=== PATIENT | female | born 2000 | race Caucasian/White ===

== ENCOUNTER 2018-09-25 22:34 | Emergency (ER) | payer BC, OTHER ==
[~2018-09-25] VITALS: Ht 157.5 cm; Wt 61.2 kg
--- OUTSIDE RECORDS SUMMARY | 2018-09-25 22:40 | XMS REPORT | Referral Summary ---
Author Author [facility] Organization [facility] Address Unknown Phone Unavailable Care Team Providers Care Furniture Manager Name Role Phone Samy Nagy PCP Encounter [facility] [id number] Date(s): 01/12/15 - 01/12/15 [facility] [address] [place] [address] Discharge Diagnosis: Irregular menses Discharge Disposition: 01-Home or Self Care Attending Physician: Temo Anaya MD Admitting Physician: Temo Anaya MD Vital Signs Most recent to 1 oldest [Reference Range]: Blood Pressure 102/64 mmHg [90-138/45-84 mmHg] (01/12/15 9:36 AM) Problem List Condition Effective Dates Status Health Status Informant Generalized anxiety Active disorder (disorder)(Confirmed ) right wrist sprain < 07/11/14 Resolved DOI 05/15/13 REC(Confirmed) Allergies, Adverse Reactions, Alerts No Known Allergies Medications Camrese oral tablet See Instructions, TAKE ONE TABLET BY MOUTH DAILY, # 91 tabs, 8 Refill(s), eRx: [facility], TAKE ONE TABLET BY MOUTH DAILY Start Date: 04/27/15 Status: Ordered Zoloft 50 mg oral tablet See Instructions, take 1 tab qd for 2 weeks then 1 1/2 tabs qd thereafter, # 90 Each, 1 Refill(s), Pharmacy: [facility], take 1 tab qd for 2 weeks then 1 1/2 tabs qd thereafter Start Date: 09/18/14 Status: Ordered Results No data available for this section Immunizations Vaccine Date Refusal Reason tetanus/diphth/pertuss (Tdap) adult/adol 03/03/10 diphtheria/pertussis, acel/tetanus ped 12/24/03 diphtheria/pertussis, acel/tetanus ped 01/05/00 diphtheria/pertussis, acel/tetanus ped 98 diphtheria/pertussis, acel/tetanus ped 98 diphtheria/pertussis, acel/tetanus ped 98 haemophilus b conjugate (HbOC) vaccine 07/14/99 haemophilus b conjugate (HbOC) vaccine 98 haemophilus b conjugate (HbOC) vaccine 98 hepatitis A pediatric vaccine 02/23/09 hepatitis A pediatric vaccine 02/22/07 hepatitis B pediatric vaccine 98 hepatitis B pediatric vaccine 98 hepatitis B pediatric vaccine 98 human papillomavirus vaccine 03/28/13 human papillomavirus vaccine 06/05/12 human papillomavirus vaccine 03/27/12 influenza virus vaccine, live 06/05/12 measles/mumps/rubella virus vaccine 12/24/03 measles/mumps/rubella virus vaccine 07/14/99 meningococcal conjugate vaccine 03/02/15 meningococcal conjugate vaccine 03/03/10 poliovirus vaccine, inactivated 12/24/03 poliovirus vaccine, inactivated 07/14/99 poliovirus vaccine, inactivated 98 poliovirus vaccine, inactivated 98 rotavirus vaccine 98 rotavirus vaccine 98 rotavirus vaccine 98 varicella virus vaccine 02/22/07 varicella virus vaccine 07/14/99 Procedures Procedure Date Related Diagnosis Body Site Tympanoplasty 2002 Ear tubes/Eardrum repair 1999 Social History Social History Type Response Smoking Status Never smoker Assessment and Plan Extracted from: Title: Gynecology Visit- Author: Temo Anaya MD Date: 01/12/15 Impression and Plan Diagnosis Irregular menses (ICD9 626.4, Discharge, Medical). Plan: Will begin seasonale. r/b/a discussed including htn, dvt, DE, stroke, etc. f/u 2months for BP check. recommend daily folic acid. .
--- OUTSIDE RECORDS SUMMARY | 2018-09-25 22:40 | XMS REPORT | Referral Summary ---
Author Author [facility] Organization [facility] Address Unknown Phone Unavailable Care Team Providers Care Solid Propellant Processor Name Role Phone Samy Nagy PCP Encounter [facility] Date(s): 03/02/15 - 03/02/15 [facility] [address], [place] [address] Discharge Diagnosis: Generalized anxiety disorder Discharge Diagnosis: Well adolescent visit Discharge Diagnosis: Unintentional weight loss Discharge Disposition: 01-Home or Self Care Attending Physician: Samy Nagy MD Admitting Physician: Samy Nagy MD Vital Signs Most recent to 1 oldest [Reference Range]: Blood Pressure 110/62 mmHg [90-138/45-84 mmHg] (03/02/15 4:12 PM) Problem List Condition Effective Dates Status Health Status Informant Generalized anxiety Active disorder (disorder)(Confirmed ) Impaired skin Active integrity(Confirmed) 1 Knowledge Active deficit(Confirmed)2 Pain(Confirmed) Active right wrist sprain < 07/11/14 Resolved DOI 05/15/13 REC(Confirmed) 1Problem added automatically by system based on initiation of Impaired Skin Integrity Plan of Care 2Problem added automatically by system based on initiation of Knowledge Deficit Plan of Care Allergies, Adverse Reactions, Alerts Substance Reaction Severity Status Nuts Active Medications Camrese oral tablet See Instructions, TAKE ONE TABLET BY MOUTH DAILY, # 91 tabs, 8 Refill(s), eRx: [facility], TAKE ONE TABLET BY MOUTH DAILY Start Date: 04/27/15 Status: Ordered clindamycin 1% topical swab 1 jack, Topical, BID, # 180 Each, 3 Refill(s), [facility] Start Date: 08/25/15 Stop Date: 08/19/16 Status: Ordered Colace 100 mg oral capsule 100 mg 1 caps, Oral, BID, 0 Refill(s) Start Date: 08/05/15 Status: Ordered MiraLax 17 g 1 packets, Oral, Daily, Constipation, 0 Refill(s) Start Date: 08/05/15 Status: Ordered [place] 5 mg-325 mg oral tablet 2 tabs, Oral, q4hr, Pain Moderate (4-6), 0 Refill(s) Start Date: 08/05/15 Status: Ordered Results Hematology Most recent to 1 oldest [Reference Range]: WBC [4.5-13.0 5.8 10*3/uL 10*3/uL] (03/02/15 4:58 PM) RBC [4.10-5.10 4.31 10*6/uL 10*6/uL] (03/02/15 4:58 PM) Hgb [11.5-15.5 12.6 gm/dL gm/dL] (03/02/15 4:58 PM) Hct [36.0-46.0 %] 38.0 % (03/02/15 4:58 PM) MCV [78.0-102.0 fL] 88.2 fL (03/02/15 4:58 PM) MCH [25.0-35.0 pg] 29.2 pg (03/02/15 4:58 PM) MCHC [31.0-37.0 33.2 gm/dL gm/dL] (03/02/15 4:58 PM) RDW [11.5-14.5 %] 12.8 % (03/02/15 4:58 PM) Platelet [150-400 263 10*3/uL 10*3/uL] (03/02/15 4:58 PM) MPV [8.8-14.8 fL] 11.6 fL (03/02/15 4:58 PM) Immature 0.2 % Granulocytes (03/02/15 4:58 PM) [0.0-1.0 %] Neutrophils [51-75 31 % %] *LOW* (03/02/15 4:58 PM) Lymphocytes [20-46 55 % %] *HI* (03/02/15 4:58 PM) Monocytes [4-11 %] 13 % *HI* (03/02/15 4:58 PM) Eosinophils [0-4 %] 2 % (03/02/15 4:58 PM) Basophils [0-2 %] 0 % (03/02/15 4:58 PM) Neutro Absolute 1.77 10*3 [1.80-8.00 10*3] *LOW* (03/02/15 4:58 PM) Lymph Absolute 3.19 10*3 [1.20-5.20 10*3] (03/02/15 4:58 PM) [place] Absolute 0.73 10*3 [0.00-0.80 10*3] (03/02/15 4:58 PM) Eos Absolute 0.09 10*3 [0.00-0.60 10*3] (03/02/15 4:58 PM) Baso Absolute 0.02 10*3 [0.00-0.20 10*3] (03/02/15 4:58 PM) Sed Rate [0-23 13 mm/hr mm/hr] (03/02/15 4:58 PM) Chemistry Most recent to 1 oldest [Reference Range]: Sodium Lvl [135-144 140 mEq/L mEq/L] (03/02/15 4:58 PM) Potassium Lvl 4.3 mEq/L [3.5-5.2 mEq/L] (03/02/15 4:58 PM) Chloride [99-111 106 mEq/L mEq/L] (03/02/15 4:58 PM) CO2 [22-31 mEq/L] 25 mEq/L (03/02/15 4:58 PM) AGAP [3-20] 9 (03/02/15 4:58 PM) BUN [8-21 mg/dL] 9 mg/dL (03/02/15 4:58 PM) Glucose Lvl [60-100 82 mg/dL mg/dL] (03/02/15 4:58 PM) Creatinine Lvl 0.77 mg/dL [0.57-1.11 mg/dL] (03/02/15 4:58 PM) Calcium Lvl 10.0 mg/dL [8.9-10.5 mg/dL] (03/02/15 4:58 PM) Albumin Lvl [3.5-5.0 4.5 gm/dL gm/dL] (6/29/15 4:58 PM) Total Protein 7.6 gm/dL [6.4-8.3 gm/dL] (03/02/15 4:58 PM) Globulin [1.8-4.0 3.1 gm/dL gm/dL] (03/02/15 4:58 PM) ALT [0-55 U/L] 9 U/L (03/02/15 4:58 PM) AST [15-45 U/L] 14 U/L *LOW* (03/02/15 4:58 PM) Alk Phos [40-150 52 U/L U/L] (03/02/15 4:58 PM) Bili Total [0.2-1.2 0.4 mg/dL mg/dL] (03/02/15 4:58 PM) TSH with Reflex Free 1.06 T4 [0.35-4.94] (03/02/15 4:58 PM) Immunizations Vaccine Date Refusal Reason tetanus/diphth/pertuss (Tdap) [...] Procedures Procedure Date Related Diagnosis Body Site Appendectomy Laparoscopic1 08/05/15 Collection of venous blood by venipuncture 03/02/15 Tympanoplasty 2003 Ear tubes/Eardrum repair 1999 1auto-populated from documented surgical case Social History Social History Type Response Smoking Status Never smoker Assessment and Plan Extracted from: Title: Well adolescent visit Author: Samy Nagy MD Date: 03/02/15 Assessment/Plan 1.Well adolescent visit Overall, I believe she is reasonably healthy. We updated her vaccines with the second meningococcal vaccine. I will see her for annual exams as well. Concerning anticipatory guidance, we talked some about relationship challenges and avoiding setting herself up for unnecessary pain. 2.Unintentional weight loss I find no exam findings to explain this weight loss but suspect it is probably related to her anxiousness. I would do some screening lab work as detailed below. If this reveals any worrisome findings, we will pursue it further. Ordered: CBC w/ Differential Comprehensive Metabolic Panel Sedimentation Rate TSH with Reflex Free T4 3.Generalized anxiety disorder She does have the chronic anxiety that at the current dosing if taken well may achieve sufficient benefit. I think we need to have simply much more consistent follow-up. I have asked her to come regularly for follow-up and would like to see her back in about 4 months.
--- OUTSIDE RECORDS SUMMARY | 2018-09-25 22:40 | XMS REPORT | Referral Summary ---
Author Author [facility] Organization [facility] Address Unknown Phone Unavailable Care Team Providers Care Search Planner Name Role Phone Samy Nagy PCP Encounter [facility] Date(s): 11/03/16 - 11/03/16 [facility] [address] [place], [place] [address] Discharge Diagnosis: Encounter for control pills maintenance Discharge Disposition: 01-Home or Self Care Attending Physician: Temo Anaya MD Admitting Physician: Temo Anaya MD Vital Signs Most recent to 1 oldest [Reference Range]: Blood Pressure 110/64 mmHg [90-140/60-90 mmHg] (11/03/16 3:13 PM) Problem List Condition Effective Dates Status Health Status Informant Exertional Active dyspnea(Confirmed) Generalized anxiety Active disorder (disorder)(Confirmed ) Impaired [...] Substance Reaction Severity Status Nuts Active Medications clindamycin 1% topical swab 1 jack, Topical, BID, # 180 Each, 3 Refill(s), [facility] Start Date: 08/25/15 Stop Date: 08/19/16 Status: Ordered Flonase 50 mcg/inh nasal spray 1 sprays, Nasal, qAM, # 16 g, 0 Refill(s), Pharmacy: [facility] Start Date: 07/25/16 Stop Date: 08/01/16 Status: Ordered Jolessa 0.15 mg-30 mcg oral tablet 1 tabs, Oral, Daily, # 91 tabs, 3 Refill(s), Pharmacy: [facility] Start Date: 11/03/16 Status: Ordered ProAir RespiClick 90 mcg/inh inhalation powder 2 puffs, Inhalation, q4hr, Wheezing or cough, # 1 Each, 0 Refill(s), Pharmacy: [facility] Start Date: 03/18/16 Status: Ordered Sprintec 0.25 mg-35 mcg oral tablet 1 tabs, Oral, Daily, # 84 tabs, 3 Refill(s), Pharmacy: [facility] Start Date: 06/13/16 Status: Ordered Results Microbiology Reports TEST: Affirm Vaginitis Panel STATUS: Auth (Verified) BODY SITE: SOURCE: Cervix/Vaginal COLLECTED DATE/TIME: 11/03/16 4:05 PM Affirm Vaginitis Panel Negative for Trichomonas vaginalis Negative for Nury species Negative for Gardnerella vaginalis Immunizations Given and Recorded Vaccine Date Status Refusal Reason tetanus/diphth/pertuss (Tdap) adult/adol 03/03/10 Recorded diphtheria/pertussis, acel/tetanus ped 12/24/03 Given diphtheria/pertussis, acel/tetanus ped 01/05/00 Given diphtheria/pertussis, acel/tetanus ped 98 Given diphtheria/pertussis, acel/tetanus ped 98 Given diphtheria/pertussis, acel/tetanus ped 98 Given haemophilus b conjugate (HbOC) vaccine 07/14/99 Given haemophilus b conjugate (HbOC) vaccine 98 Given haemophilus b conjugate (HbOC) vaccine 98 Given hepatitis A pediatric vaccine 02/23/09 Given hepatitis A pediatric vaccine 02/22/07 Given hepatitis B pediatric vaccine 98 Given hepatitis B pediatric vaccine 98 Given hepatitis B pediatric vaccine 98 Given human papillomavirus vaccine 03/28/13 Given human papillomavirus vaccine 06/05/12 Given human papillomavirus vaccine 03/27/12 Given influenza virus vaccine, live 06/05/12 Given measles/mumps/rubella virus vaccine 12/24/03 Given measles/mumps/rubella virus vaccine 07/14/99 Given meningococcal conjugate vaccine 03/02/15 Given meningococcal conjugate vaccine 03/03/10 Given meningococcal group B vaccine 04/15/16 Given meningococcal group B vaccine 03/18/16 Given poliovirus vaccine, inactivated 12/24/03 Given poliovirus vaccine, inactivated 07/14/99 Given poliovirus vaccine, inactivated 98 Given poliovirus vaccine, inactivated 98 Given rotavirus vaccine 98 Given rotavirus vaccine 98 Given rotavirus vaccine 98 Given varicella virus vaccine 02/22/07 Given varicella virus vaccine 07/14/99 Given Procedures Procedure Date Related Diagnosis Body Site Appendectomy Laparoscopic1 08/05/15 Tympanoplasty 2003 Ear tubes/Eardrum repair 1999 1auto-populated from documented surgical case Social History Social History Type Response Smoking Status Never smoker; Ready to change: No Assessment and Plan Extracted from: Title: Office Visit Note Author: Tatum Sandy APRN Date: 11/03/16 Assessment/Plan 1.Encounter for control pills maintenance Patient expresses desire to switch her Rx to Jolessa 90 day, prescribed per her request. Ordered: Office Visit Level 2 Est 52918
--- OUTSIDE RECORDS SUMMARY | 2018-09-25 22:40 | XMS REPORT | Referral Summary ---
Author Author [facility] Organization [facility] Address Unknown Phone Unavailable Care Team Providers Care Assistant Professor Of Geography Name Role Phone Samy Nagy PCP Encounter [facility] Date(s): 12/25/15 - 12/25/15 [facility] [address] [place], [place] [address] Discharge Diagnosis: History of cystitis Discharge Disposition: 01-Home or Self Care Attending Physician: Samy Nagy MD Admitting Physician: Samy Nagy MD Vital Signs Most recent to 1 oldest [Reference Range]: Blood Pressure 110/70 mmHg [90-138/45-84 mmHg] (12/25/15 11:29 AM) Problem List Condition Effective Dates Status [...] DAILY, # 91 tabs, 8 Refill(s), eRx: [facility], TAKE ONE TABLET BY MOUTH DAILY Start Date: 04/27/15 Status: Ordered clindamycin 1% topical swab 1 jack, Topical, BID, # 180 Each, 3 Refill(s), [facility] Start Date: 08/25/15 Stop Date: 08/19/16 Status: Ordered Results Urinalysis Most recent to 1 oldest [Reference Range]: UA Color Yellow (12/25/15 11:18 AM) UA Appear Clear (12/25/15 11:18 AM) UA pH [5.0-8.0] 6.5 (12/25/15 11:18 AM) UA Leuk Est Negative [Negative] (12/25/15 11:18 AM) UA Nitrite Negative [Negative] (12/25/15 11:18 AM) UA Protein Negative [Negative] (12/25/15 11:18 AM) UA Glucose Negative [Negative] (12/25/15 11:18 AM) UA Ketones Negative [Negative] (12/25/15 11:18 AM) UA Urobilinogen 0.2 mg/dL [<=1.0 mg/dL] (12/25/15 11:18 AM) UA Bili [Negative] Negative (12/25/15 11:18 AM) UA Blood [Negative] Negative (12/25/15 11:18 AM) UA Spec Grav 1.025 [1.003-1.030] (12/25/15 11:18 AM) Type Cl Catch (12/25/15 11:18 AM) UA WBC [0-4] 0-2 (12/25/15 11:18 AM) UA RBC [0-4] 0-4 (12/25/15 11:18 AM) Epithelial Cells 0-2 (12/25/15 11:18 AM) Immunizations Vaccine Date Refusal Reason tetanus/diphth/pertuss (Tdap) [...] Diagnosis Body Site Appendectomy Laparoscopic1 08/05/15 Tympanoplasty 2002 Ear tubes/Eardrum repair 1999 1auto-populated from documented surgical case Social History Social History Type Response Smoking Status Never smoker Assessment and Plan Extracted from: Title: Follow-up cystitis Author: Samy Nagy MD Date: 12/25/15 Assessment/Plan 1.History of cystitis I believe she is resolve this event ofcystitis. Her follow-up UA is clean so far. Culture is pending. Assuming that the culture is negative,they may wish to use somecranberry juice a few timesa weekto slightly reduce the riskand let us know if any new events occur. Dysuria Ordered: Urinalysis Microscopic
--- OUTSIDE RECORDS SUMMARY | 2018-09-25 22:40 | XMS REPORT | Referral Summary ---
Author Author [facility] Organization [facility] Address Unknown Phone Unavailable Care Team Providers Care Public Relations Intern Name Role Phone Samy Nagy PCP Encounter [facility] Date(s): 08/24/15 - 08/24/15 [facility] [address] [place], [place] [address] Discharge Diagnosis: Acute appendicitis Discharge Disposition: 01-Home or Self Care Attending Physician: Kashif Simon MD Admitting Physician: Kashif Simon MD Vital Signs No data available for this section Problem List Condition Effective Dates Status Health [...] DAILY, # 91 tabs, 8 Refill(s), eRx: [facility], TAKE ONE TABLET BY MOUTH DAILY Start Date: 04/27/15 Status: Ordered Colace 100 mg oral capsule 100 mg 1 caps, Oral, BID, 0 Refill(s) Start Date: 08/05/15 Status: Ordered MiraLax 17 g 1 packets, Oral, Daily, Constipation, 0 Refill(s) Start Date: 08/05/15 Status: Ordered [place] 5 mg-325 mg oral tablet 2 tabs, Oral, q4hr, Pain Moderate (4-6), 0 Refill(s) Start Date: 08/05/15 Status: Ordered Results No data available for [...] smoker Assessment and Plan Extracted from: Title: Ambulatory Patient Education Author: Kashif Simon MD Date: 08/24 Family Medicine Laparoscopic Appendectomy Appendectomy is surgery to remove the appendix. Laparoscopic surgery uses several small cuts (incisions) instead of one large incision. Laparoscopic surgery offers a shorter recovery time and less discomfort. LET YOUR CAREGIVER KNOW ABOUT: Allergies to food or medicine. Medicines taken, including vitamins, dietary supplements, herbs, eyedrops, tjky-ijm-dhcydnu medicines, and creams. Use of steroids (by mouth or creams). Previous problems with anesthetics or numbing medicines. History of bleeding problems or blood clots. Previous surgery. Other health problems, including diabetes, heart problems, lung problems, and kidney problems. Possibility of , if this applies. RISKS AND COMPLICATIONS Infection. A germ starts growing in the wound. This can usually be treated with antibiotics. In some cases, the wound will need to be opened and cleaned. Bleeding. Damage to other organs. Sores (abscesses). Chronic pain at the incision sites. This is defined as pain that lasts for more than 3 months. Blood clots in the legs that may rarely travel to the lungs. Infection in the lungs (pneumonia). BEFORE THE PROCEDURE Appendectomy is usually performed immediately after an inflamed appendix ( appendicitis) is diagnosed. No preparation is necessary ahead of this procedure. PROCEDURE You will be given medicine that makes you sleep (general anesthetic). After you are asleep, a flexible tube (catheter) may be inserted into your bladder to drain your urine during surgery. The tube is removed before you wake up after surgery. When you are asleep, carbondioxide gas will be used to inflate your abdomen. This will allow your surgeon to see inside your abdomen and perform your surgery. Three small incisions will be made in your abdomen. Your surgeon will insert a thin, lighted tube (laparoscope) through one of the incisions. Your surgeon will look through the laparoscope while performing the surgery. Other tools will be inserted through the other incisions. Laparoscopic procedures may not be appropriate when: There is major scarring from a previous surgery. The patient has bleeding disorders. A is near term. There are other conditions which make the laparoscopic procedure impossible, such as an advanced infection or a ruptured appendix. If your surgeon feels it is not safe to continue with the laparoscopic procedure , he or she will perform an open surgery instead. This gives the surgeon a larger view and more space to work. Open surgery requires a longer recovery time. After your appendix is removed, your incisions will be closed with stitches (sutures) or skin adhesive. AFTER THE PROCEDURE You will be taken to a recovery room. When the anesthesia has worn off, you will be returned to your hospital room. You will be given pain medicines to keep you comfortable. Ask your caregiver how long your hospital stay will be. Document Released: 04/04/2005 Document Revised: 11/12/2012 Document Reviewed: [employer] Patient Information 2015 [employer]. This information is not intended to replace advice given to you by your health care provider. Make sure you discuss any questions you have with your health care provider. No follow up information was provided. Extracted from: Title: Surgery Post Op Office Visit Author: Kashif Simon MD Date: 08/24 Note Assessment/Plan Acute appendicitis Luann is doing well postoperatively. She can resume all her normal activities at this point. He understands she has any problems with her incisions or any other concern she's to return here to the office. Ordered: Postoperative Est 50338
--- OUTSIDE RECORDS SUMMARY | 2018-09-25 22:40 | XMS REPORT | Referral Summary ---
Author Author [facility] Organization [facility] Address Unknown Phone Unavailable Care Team Providers Care Big Data Analytics Lead Name Role Phone Samy Nagy PCP Encounter [facility] [id number] Date(s): 04/23/15 - 04/23/15 [facility] [address] [place] [address] [facility] Discharge Diagnosis: Left otitis media Discharge Diagnosis: Left otitis externa Discharge Diagnosis: Maxillary sinusitis Discharge Disposition: 01-Home or Self Care Attending Physician: Provider, Immediate Care Admitting Physician: Provider, Immediate Care Vital Signs Most recent to 1 oldest [Reference Range]: Temperature Oral 36.8 degC [36.0-37.6 degC] (04/23/15 5:21 PM) Peripheral Pulse 60 bpm Rate [55-90 bpm] (04/23/15 5:21 PM) Blood Pressure 112/76 mmHg [90-138/45-84 mmHg] (04/23/15 5:21 PM) SpO2 99 % (04/23/15 5:21 PM) Problem List Condition Effective Dates Status [...] DAILY, # 91 tabs, 8 Refill(s), eRx: [facility], TAKE ONE TABLET BY MOUTH DAILY [...] 0 Refill(s) Start Date: 08/05/15 Status: Ordered [place] 5 mg-325 mg oral tablet 2 tabs, [...] smoker Assessment and Plan Extracted from: Title: Office Visit Note Author: Davin Sargent MD Date: 04/23/15 Assessment/Plan 1.Left otitis externa Tylenol as needed or motrin as needed. Push fluids. Diet as tolerated. Activity as tolerated. Return as needed. Tylenol or Motrin for pain. Ordered: Office Visit Level 4 Est 04850 2.Left otitis media Ordered: Office Visit Level 4 Est 87071 3.Maxillary sinusitis Zyrtec-D or Claritin-D as needed. Ordered: Office Visit Level 4 Est [id number] Orders: amoxicillin-clavulanate, 1 tabs, Oral, q12hr, X 10 days, # 20 tabs, 0 Refill(s), Pharmacy: [facility] #[id number] ciprofloxacin-dexamethasone otic, 4 drops, Ear-Left, BID, X 7 days, # 7 mL, 0 Refill(s), Pharmacy: [facility] #[id number]
--- OUTSIDE RECORDS SUMMARY | 2018-09-25 22:40 | XMS REPORT | Referral Summary ---
Author Author [facility] Organization [facility] Address Unknown Phone Unavailable Care Team Providers Care Affiliate Marketing Specialist Name Role Phone Samy Nagy PCP Encounter [facility] Date(s): 08/04/15 - 08/05/15 [facility] [address] [place] [address] Discharge Disposition: 01-Home or Self Care Attending Physician: Kashif Simon MD Admitting Physician: Kashif Simon MD Vital Signs Most recent to 1 oldest [Reference Range]: Temperature Axillary 37.0 degC [36-37 degC] (08/05/15 2:55 AM) Temperature Oral 36.9 degC [36-37.6 degC] (08/05/15 1:00 PM) Temperature Skin 37.3 degC [36-37 degC] *HI* (08/05/15 2:00 AM) Temperature Temporal 37.1 degC Artery [36-38 degC] (08/05/15 8:00 AM) Peripheral Pulse 71 bpm Rate [55-90 bpm] (08/04/15 10:51 PM) Heart Rate Monitored 63 bpm [60-100 bpm] (08/05/15 1:00 PM) Respiratory Rate 16 br/min [14-20 br/min] (08/05/15 1:00 PM) Blood Pressure 94/59 mmHg [90-138/45-84 mmHg] (08/05/15 7:27 AM) Mean Arterial 104 mmHg Pressure, Cuff (08/05/15 2:13 AM) SpO2 98 % (08/05/15 1:00 PM) Problem List Condition Effective Dates Status [...] DAILY, # 91 tabs, 8 Refill(s), eRx: [facility], TAKE ONE TABLET BY MOUTH DAILY Start Date: 04/27/15 Status: Ordered Colace 100 mg oral capsule 100 mg 1 caps, Oral, BID, 0 Refill(s) Start Date: 08/05/15 Status: Ordered MiraLax 17 g 1 packets, Oral, Daily, Constipation, 0 Refill(s) Start Date: 08/05/15 Status: Ordered [place] 5 mg-325 mg oral tablet 2 tabs, [...] Smoking Status Never smoker Assessment and Plan No data available for this section
--- OUTSIDE RECORDS SUMMARY | 2018-09-25 22:41 | XMS REPORT | Referral Summary ---
Author Author [facility] Organization [facility] Address Unknown Phone Unavailable Care Team Providers Care Paint And Table Edger Name Role Phone Samy Nagy PCP Encounter [facility] [id number] Date(s): 01/12/15 - 01/12/15 [facility] [address] [place] [id number] Discharge Diagnosis: Irregular menses Discharge Disposition: [...] DAILY, # 91 tabs, 8 Refill(s), eRx: [facility], TAKE ONE TABLET BY MOUTH DAILY Start Date: 04/27/15 Status: Ordered Zoloft 50 mg oral tablet See Instructions, take 1 tab qd for 2 weeks then 1 1/2 tabs qd thereafter, # 90 Each, 1 Refill(s), Pharmacy: [facility], take 1 tab qd for 2 [...] begin seasonale. r/b/a discussed including htn, dvt, ME, stroke, etc. f/u 2months for BP check. recommend daily folic acid. .
--- OUTSIDE RECORDS SUMMARY | 2018-09-25 22:41 | XMS REPORT | Referral Summary ---
Author Author [facility] Organization [facility] Address Unknown Phone Unavailable Care Team Providers Care Supervisor Firearms Name Role Phone Samy Nagy PCP Encounter [facility] Date(s): 04/15/16 - 04/15/16 [facility] [address], [place] [address] Discharge Disposition: 01-Home or Self Care Attending Physician: Samy Nagy MD Admitting Physician: Samy Nagy MD Vital Signs No data available for [...] Medications Camrese oral tablet See Instructions, TAKE DIRECTED BY PHYSICIAN OR PACKAGE INSTRUCTIONS, # 91 tabs, eRx: [facility], TAKE DIRECTED BY PHYSICIAN OR PACKAGE INSTRUCTIONS Start Date: 02/29/16 Status: Ordered clindamycin 1% topical swab 1 jack, Topical, BID, # 180 Each, 3 Refill(s), [facility]acy[facility] Start Date: 08/25/15 Stop Date: 08/19/16 Status: Ordered ProAir RespiClick 90 mcg/inh inhalation powder 2 puffs, Inhalation, q4hr, Wheezing or cough, # 1 Each, 0 Refill(s), Pharmacy: [facility] Start Date: 03/18/16 Status: Ordered Results No data available for [...] conjugate vaccine 03/02/15 meningococcal conjugate vaccine 03/03/10 meningococcal group B vaccine 04/15/16 meningococcal group B vaccine 03/18/16 poliovirus vaccine, inactivated 12/24/03 poliovirus vaccine, inactivated [...] Ready to change: No Assessment and Plan No data available for this section
--- OUTSIDE RECORDS SUMMARY | 2018-09-25 22:41 | XMS REPORT | Referral Summary ---
Author Author [facility] Organization [facility] Address Unknown Phone Unavailable Care Team Providers Care Day Spa Manager Name Role Phone Samy Nagy PCP Encounter [facility] Date(s): 03/30/15 - 03/30/15 [facility] [address] [place] [address] Discharge Diagnosis: Acute URI Discharge Disposition: 01-Home or Self Care Attending Physician: Mark Hernandez Admitting Physician: Mark Hernandez Referring Physician: Samy Nagy MD Vital Signs Most recent to 1 oldest [Reference Range]: Peripheral Pulse 62 bpm Rate [55-90 bpm] (03/30/15 3:01 PM) Blood Pressure 110/60 mmHg [90-138/45-84 mmHg] (03/30/15 3:01 PM) SpO2 98 % (03/30/15 3:01 PM) Problem List Condition Effective Dates Status [...] DAILY, # 91 tabs, 8 Refill(s), eRx: [facility], TAKE ONE TABLET BY MOUTH DAILY [...] 0 Refill(s) Start Date: 08/05/15 Status: Ordered Pull[place] 5 mg-325 mg oral tablet 2 tabs, [...] Extracted from: Title: Office Visit Note Author: Mark Hernandez Date: 03/30/15 Assessment/Plan 1.Acute URI Suggest using OTC Mucinex and Saline nasal spray. Also, while showering breathe in steam through nose and mouth. Take medicaitons as directed. If not getting better in next 5-7 days or if start running temp > 101 please call. Provisional Rx for Z-Joes given should she worsen over the next few days. Ordered: Office Visit Level 4 Est 23888 Orders: azithromycin, See Instructions, as directed on package labeling, # 6 tabs, 0 Refill(s)
--- OUTSIDE RECORDS SUMMARY | 2018-09-25 22:41 | XMS REPORT | Referral Summary ---
Author Author [facility] Organization [facility] Address Unknown Phone Unavailable Care Team Providers Care Director It Project Name Role Phone Samy Nagy PCP Encounter [facility] Date(s): 03/18/16 - 03/18/16 [facility] [address] [place], [place] [address] Discharge Diagnosis: Exertional dyspnea Discharge Diagnosis: Well adolescent visit Discharge Diagnosis: Generalized anxiety disorder Discharge Disposition: 01-Home or Self Care Attending Physician: Samy Nagy MD Admitting Physician: Samy Nagy MD Vital Signs Most recent to 1 oldest [Reference Range]: Blood Pressure 122/78 mmHg [90-138/45-84 mmHg] (03/18/16 12:55 PM) Problem List Condition Effective Dates Status [...] cough, # 1 Each, 0 Refill(s), Pharmacy: [facility] Start Date: 03/18/16 Status: Ordered Results [...] conjugate vaccine 03/03/10 meningococcal group B vaccine 03/18/16 poliovirus vaccine, [...] No Assessment and Plan Extracted from: Title: Well adolescent visit Author: Samy Nagy MD Date: 03/18/16 Assessment/Plan 1.Well adolescent visit Overall, I believe she is a healthy and appropriate 15-year-old. Vaccines were updated with themeningococcal type B. I would like to see her back in a year. 2.Exertional dyspnea She has this story of exertional dyspnea with the most aggressive of activity only. I think it is appropriate to start by simply doing a trial of albuterol. This was prescribed been demonstrated on how to effectively use. I would do 2 puffs prior to extensive sportsat times and then other times not use it and see how much she can tell a difference. She also of course could use it and a rescue mode. If she needs to use it with much frequency, we should probably hear back from her. 3.Generalized anxiety disorder This appears to have faded at this time which is encouraging. Orders: albuterol, 2 puffs, Inhalation, q4hr, Wheezing or cough, # 1 Each, 0 Refill(s), Pharmacy: [facility]
--- OUTSIDE RECORDS SUMMARY | 2018-09-25 22:41 | XMS REPORT | Referral Summary ---
Author Author [facility] Organization [facility] Address Unknown Phone Unavailable Care Team Providers Care Director Of Spa And Guest Experience Name Role Phone Samy Nagy PCP Encounter Date(s): 01/06/16 - 01/06/16 [facility] [address] [place] [address] [facility] Discharge Diagnosis: Right ankle sprain Discharge Diagnosis: Foot pain, right Discharge Disposition: 01-Home or Self Care Attending Physician: Provider, Immediate Care Admitting Physician: Provider, Immediate Care Vital Signs Most recent to 1 oldest [Reference Range]: Temperature Oral 36.9 degC [36.0-37.6 degC] (01/06/16 5:03 PM) Peripheral Pulse 72 bpm Rate [55-90 bpm] (01/06/16 5:03 PM) Blood Pressure 124/87 mmHg [90-138/45-84 mmHg] (01/06/16 5:03 PM) SpO2 98 % (01/06/16 5:03 PM) Problem List Condition Effective Dates Status [...] Substance Reaction Severity Status Nuts Active Medications amoxicillin 875 mg oral tablet 875 mg 1 tabs, Oral, BID, X 10 days, # 20 tabs, 0 Refill(s), Pharmacy: [facility], 1 tabs Oral BID,x10 days Start Date: 12/28/15 Stop Date: 01/07/16 Status: Ordered Camrese oral tablet See Instructions, TAKE ONE TABLET BY MOUTH DAILY, # 91 tabs, 8 Refill(s), eRx: [facility], TAKE ONE TABLET BY MOUTH DAILY Start Date: 04/27/15 Status: Ordered clindamycin 1% topical swab 1 jack, Topical, BID, # 180 Each, 3 Refill(s), [facility] Start Date: 08/25/15 Stop Date: 08/19/16 Status: Ordered Results No data available for [...] Extracted from: Title: Office Visit Note Author: Toni Domínguez MD Date: 01/06/16 Assessment/Plan Foot pain, right Ordered: Office Visit Level 3 Est 07621 Right ankle sprain RecommendedAce wrap for thefoot. Activity as tolerated. She is to follow with her PCP if not improving. Ordered: Office Visit Level 3 Est 87212
--- OUTSIDE RECORDS SUMMARY | 2018-09-25 22:41 | XMS REPORT | Referral Summary ---
Author Author [facility] Organization [facility] Address Unknown Phone Unavailable Care Team Providers Care Post Office Manager Name Role Phone Samy Nagy PCP Encounter [facility] Date(s): 07/25/16 - 07/25/16 [facility] [address], [place] [address] Discharge Diagnosis: Upper respiratory infection with cough and congestion Discharge Diagnosis: Headache Discharge Diagnosis: Sinusitis Discharge Disposition: 01-Home or Self Care Attending Physician: Jillian Velasquez MD Admitting Physician: Jillian Velasquez MD Vital Signs Most recent to 1 oldest [Reference Range]: Peripheral Pulse 76 bpm Rate [60-100 bpm] (07/25/16 1:29 PM) Blood Pressure 106/62 mmHg [90-140/60-90 mmHg] (07/25/16 1:29 PM) SpO2 98 % (07/25/16 1:29 PM) Problem List Condition Effective Dates Status [...] Substance Reaction Severity Status Nuts Active Medications azithromycin 250 mg oral tablet See Instructions, Take 2 tablets on day 1, then 1 tablet on day 2-5, once a day. Total course 5 days., # 6 tabs, 0 Refill(s), Pharmacy: [facility] , Take 2 tablets on day 1, then 1 tablet on day 2-5, once a day. Total course 5 days. Start Date: 07/25/16 Stop Date: 07/29/16 Status: Ordered clindamycin 1% topical swab 1 jack, Topical, BID, # 180 Each, 3 Refill(s), [facility] Start Date: 08/25/15 Stop Date: 08/19/16 Status: Ordered Flonase 50 mcg/inh nasal spray 1 sprays, Nasal, qAM, # 16 g, 0 Refill(s), Pharmacy: [facility] Start Date: 07/25/16 Stop Date: 08/01/16 Status: Ordered ProAir RespiClick 90 mcg/inh inhalation powder 2 puffs, Inhalation, q4hr, Wheezing or cough, # 1 Each, 0 Refill(s), Pharmacy: [facility] Start Date: 03/18/16 Status: Ordered Sprintec 0.25 mg-35 mcg oral tablet 1 tabs, Oral, Daily, # 84 tabs, 3 Refill(s), Pharmacy: [facility] Start Date: 06/13/16 Status: Ordered Results No data available for [...] Extracted from: Title: Office Visit Note Author: Jillian Velasquez MD Date: 07/25/16 Referrals to Other Providers Referred by: Jillian Velasquez MD
--- OUTSIDE RECORDS SUMMARY | 2018-09-25 22:42 | XMS REPORT | Continuity of Care Document ---
Author Author Larry Angulo RN [facility] Address [address] [place] [id number] Phone Unavailable Care Team Providers Care Charge Nurse Name Role Phone Samy Nagy PP Unavailable Payers Payer name Insurance type Covered republican ID Authorization(s) Unknown Problems Condition Effective Dates (start - stop) Clinical Status Generalized anxiety disorder - *Chronic Generalized anxiety disorder - Chronic Ankle sprain - *Acute Other acne - *Chronic Other and unspecified injury to elbow, forearm, and wrist - * Acute Closed fracture of carpal bone, unspecified - Pressure-related ear pain - *Routine Dysmenorrhea in the adolescent - *Routine Irregular periods/menstrual cycles - *Routine Influenza Vaccine - NEED FOR PROPHYLACTIC VACCINATION AND INOCULATION, OTHER VIRAL DISEASES - Generalized anxiety disorder - *Chronic Contusion of great toe, right - *Acute Routine or child health check - Routine Generalized anxiety disorder - *Worse Wrist sprain - *Routine Unspecified sinusitis (chronic) - *Acute Acute viral labyrinthitis - *Acute SPRAIN CARPAL - Nasal congestion - *Acute Family History Family Member Diagnosis Age At Onset Status Mother (Alive) BACK ISSUES (Unknown) Social History Social History Element Description Quantity Unknown Allergies, Adverse Reactions, Alerts Substance Reaction Severity Status Unknown Medications Medication Instructions Dosage Effective Dates (start - stop) Status Zoloft 50 mg tablet take 1.5 Tablet (75MG) by oral route every day 75 MG - Active Duac 1.2 %(1 % base)-5 % topical gel,extended release apply by topical route every day to the affected area at bedtime. 0 - Active ibuprofen 200 mg capsule take 1 capsule (200MG) by oral route every 6 hours as needed 200 MG - Active Immunizations Vaccine Date Status Comments HPV (quadrivalent) completed Flu (split) (3 yrs or older) completed HPV (quadrivalent) completed Infanrix completed - Completed reason: source unspecified hep B (ped/adol, 3 dose) completed - Completed reason: source unspecified hep B (ped/adol, 3 dose) completed - Completed reason: source unspecified hep B (ped/adol, 3 dose) completed - Completed reason: source unspecified HPV (quadrivalent) completed - Completed reason: source unspecified MMR completed - Completed reason: source unspecified MCV4 completed - Completed reason: source unspecified polio, inactivated (IPV) completed - Completed reason: source unspecified MMR completed - Completed reason: source unspecified RotaTeq (Rotavirus 3 dose) completed - Completed reason: source unspecified RotaTeq (Rotavirus 3 dose) completed - Completed reason: source unspecified polio, inactivated (IPV) completed - Completed reason: source unspecified Infanrix completed - Completed reason: source unspecified Infanrix completed - Completed reason: source unspecified Infanrix completed - Completed reason: source unspecified Tdap (Boostrix ) completed - Completed reason: source unspecified Hib (HbOC) completed - Completed reason: source unspecified Hib (HbOC) completed - Completed reason: source unspecified Hib (HbOC) completed - Completed reason: source unspecified Infanrix completed - Completed reason: source unspecified hep A (ped/adol, 2 dose) completed - Completed reason: source unspecified hep A (ped/adol, 2 dose) completed - Completed reason: source unspecified polio, inactivated (IPV) completed - Completed reason: source unspecified polio, inactivated (IPV) completed - Completed reason: source unspecified RotaTeq (Rotavirus 3 dose) completed - Completed reason: source unspecified varicella completed - Completed reason: source unspecified varicella completed - Completed reason: source unspecified Results Test Name Date and Time Measure Units Reference Range Abnormal Flag Comments Unknown Vital Signs Date / Time: Height Weight Pulse Rate Blood Pressure Temperature /11:31:00 65.75 in 125.00 lbs 98/60 mm[Hg] Procedures Procedure Date Unknown Encounters Encounter Location Date Patient Visit [facility] CP Peds Patient Visit [facility] CP Peds Patient Visit [facility] Care Patient Visit [facility] Ortho Patient Visit [facility] E21 OB Patient Visit [facility] Peds Patient Visit [facility] Peds Patient Visit [facility] Peds Patient [facility] Ortho Patient Visit [facility] CP Peds Patient Visit [facility] CP Peds Patient Visit Conversion Patient Visit [facility] CP Peds Patient Visit [facility] CP Peds Advance Directives Directive Effective Date Unknown
--- OUTSIDE RECORDS SUMMARY | 2018-09-25 22:42 | XMS REPORT | Continuity of Care Document ---
Author Author [facility] Organization [facility] Address Unknown Phone Unavailable Allergies Active Description Code Type Severity Reaction Onset Reported/Identified Relationship to Patient Clinical Status Yes No Known Allergies NKMA N/A N/A 02/21/2014 Yes No Known Allergies NKMA N/A N/A 02/21/2014 Yes Nuts egg-containing compound N/A N/A 08/04/2015 Yes Nuts 99271 N/A N/ A 08/04/2015 Medications Medication Packaging Start Date Stop Date Route Dosage Sig MAXITROL 06/01/2015 instill 1 drop into each eye 4 times a day for 7 days meningococcal group B vaccine(Bexsero intramuscular suspension) 0.5 mL 04/15/2016 04/15/2016 IntraMuscular 0.5 mL, IntraMuscular, Once TOBRADEX 06/13/2016 instill 1 drop into right eye 4 times a day for 7 days azithromycin(azithromycin 250 mg oral tablet) 07/25/2016 07/29/2016 See Instructions, Take 2 tablets on day 1, then 1 tablet on day 2-5, once a day. Total course 5 days., 6 tabs, 0 Refill(s) fluticasone nasal(Flonase 50 mcg/inh nasal spray) 1 sprays 07/25/2016 08/01/2016 Nasal 1 sprays, Nasal, qAM, for 7 days, 16 g, 0 Refill (s) levonorgestrel-ethinyl estradiol(Jolessa 0.15 mg-30 mcg oral tablet ) 1 tabs 11/03/2016 Oral 1 tabs, Oral, Daily, 91 tabs, 3 Refill( s) Problems Date Dx Coded Attending Type Code Diagnosis Diagnosed By 08/12/2015 Kashif Simon MD Final K35.80 Unspecified acute appendicitis 08/12/2015 Kashif Simon MD Final K36 Other appendicitis 08/12/2015 Kashif Simon MD Reason R10.31 Right lower quadrant pain 01/06/2016 Toni Domínguez Final M79.671 Pain in right foot 01/06/2016 Toni Domínguez Final S93.401A Sprain of unspecified ligament of right ankle, initial encounter 03/18/2016 Samy Nagy Final Z00.129 Encounter for routine child health examination without abnormal findings 03/18/2016 Samy Nagy Final F41.1 Generalized anxiety disorder 03/18/2016 Samy Nagy Final R06.09 Other forms of dyspnea 04/18/2016 W H52.13 Myopia, bilateral 06/10/2016 W S05.01XA Injury of conjunctiva and corneal abrasion without foreign body, right eye, initial encounter 06/13/2016 W B30.8 Other viral conjunctivitis 07/25/2016 Jillian Velasquez Vita Final J06.9 Acute upper respiratory infection, unspecified 07/25/2016 Jillian Velasquez Vita Final R51 Headache 07/25/2016 Jillian Velasquez Vita Final J32.9 Chronic sinusitis, unspecified 11/03/2016 Temo Anaya Final Z30.41 Encounter for surveillance of contraceptive pills 03/01/2017 W H52.13 Myopia, bilateral 02/27/2018 W H52.13 Myopia, bilateral 02/27/2018 W H52.13 Myopia, bilateral Procedures Code Description [place] [address] Laparoscopy, surgical, appendectomy 08/05/2015 50802 Radiologic examination, foot ; complete, minimum of 3 views.. 01/06/2016 26550 Office or other outpatient visit for the evaluation and management of an established patient, which requires at least 2 of these 3 salomon components: An expanded problem focused history; An expanded prob 01/06/2016 72779 Immunization administration (includes percutaneous, intradermal, subcutaneous, or intramuscular injections) ; 1 vaccine (single or combination vaccine/toxoid).. 03/18/2016 23152 Meningococcal recombinant protein and outer membrane vesicle vaccine, serogroup B (MenB), 2 dose schedule , for intramuscular use 03/18/2016 72013 Periodic comprehensive preventive medicine reevaluation and management of an individual including an age and gender appropriate history, examination, counseling/anticipatory guidance/risk factor reduc 03/18/2016 89262 EYE EXAM T TREATMENT 04/01/2016 38402 REFRACTION 04/01/2016 35777 Contact Lens Fittting 04/01/2016 V2520 Contact lens hydrophilic 04/01/2016 20936 Immunization administration (includes percutaneous, intradermal, subcutaneous, or intramuscular injections) ; 1 vaccine (single or combination vaccine/toxoid).. 04/15/2016 32855 Meningococcal recombinant protein and outer membrane vesicle vaccine, serogroup B (MenB), 2 dose schedule , for intramuscular use 04/15/2016 53182 OFFICE/OUTPATIENT VISIT, EST 06/10/2016 58798 OFFICE/OUTPATIENT VISIT, EST 06/13/2016 25117 Office or other outpatient visit for the evaluation and management of an established patient, which requires at least 2 of these 3 salomon components: An expanded problem focused history; An expanded prob 07/25/2016 24398 Infectious agent detection by nucleic acid (DNA or RNA); Nury species, direct probe technique.. 11/03/2016 40829 Infectious agent detection by nucleic acid (DNA or RNA); Chlamydia trachomatis, amplified probe technique.. 11/03/2016 12917 Infectious agent detection by nucleic acid (DNA or RNA); Gardnerella vaginalis, direct probe technique.. 11/03/2016 18922 Infectious agent detection by nucleic acid (DNA or RNA); Neisseria gonorrhoeae, amplified probe technique.. 11/03/2016 78638 Infectious agent detection by nucleic acid (DNA or RNA); Trichomonas vaginalis, direct probe technique 11/03/2016 41507 Office or other outpatient visit for the evaluation and management of an established patient, which requires at least 2 of these 3 salomon components: A problem focused history; A problem focused examinat 11/03/2016 90868 EYE EXAM T TREATMENT 03/01/2017 V2020 Vision [employer] frames purchases 03/01/2017 V2100 Lens spher single plano 4.00 03/01/2017 V2750 Anti-reflective coating 03/01/2017 V2755 UV lens/es 03/01/2017 V2784 Lens polycarb or equal 03/01/2017 VNOPP No Protection Plan 03/01/2017 Void Charge Void 03/01/2017 V2020 Vision [employer] frames purchases 03/01/2017 V2100 Lens spher single plano 4.00 03/01/2017 V2750 Anti-reflective coating 03/01/2017 V2755 UV lens/es 03/01/2017 V2784 Lens polycarb or equal 03/01/2017 VNOPP No Protection Plan 03/01/2017 V2520 Contact lens hydrophilic 03/09/2017 77167 EYE EXAM ESTABLISHED PAT 02/27/2018 V2520 Contact lens hydrophilic 03/02/2018 V2520 Contact lens hydrophilic 03/05/2018 Results Test Result Range .Blood Culture #2 AMS - 06/07/17 18:45 Blood Culture #2 Source AMS Lt AC NRG Blood Culture #2 Prelim AMS Source: Blood Collected: 06/07/17 18:45 NRG Blood Culture #2 Final AMS Source: Blood Collected: 06/07/17 18:45 NRG CMP - 06/07/17 18:45 GFR >60 >=60 GFR NonAfrican Salvadorean >60 >=60 SODIUM:SCNC:PT:SER/PLAS:QN: 134 mmol/L 136-145 POTASSIUM:SCNC:PT:SER/PLAS:QN: 3.6 mmol/L 3.5-5.1 CHLORIDE:SCNC:PT:SER/PLAS:QN: 99 mmol/L 98-107 CARBON DIOXIDE:SCNC:PT:SER/PLAS:QN: 25 mmol/L 21-32 ANION GAP 3:SCNC:PT:SER/PLAS:QN: 10 7-16 UREA NITROGEN:MCNC:PT:SER/PLAS:QN: 11 mg/dL 6-20 CREATININE:MCNC:PT:SER/PLAS:QN: 1.0 mg/dL 0.6-1.0 GLUCOSE:MCNC:PT:SER/PLAS:QN: 83 mg/dL 70-110 CALCIUM:MCNC:PT:SER/PLAS:QN: 9.6 mg/dL 8.6-10.2 UREA NITROGEN/CREATININE:MRTO:PT:SER/PLAS:QN: 10.9 10.0- 20.1 ALKALINE PHOSPHATASE:CCNC:PT:SER/PLAS:QN: 70 unit/L 35- 104 BILIRUBIN:MCNC:PT:SER/PLAS:QN: 0.5 mg/dL 0.2-1.0 ALBUMIN:MCNC:PT:SER/PLAS:QN:BCP 4.0 gm/dL 3.4-5.0 PROTEIN:MCNC:PT:SER/PLAS:QN: 8.6 gm/dL 6.4-8.2 GLOBULIN:MCNC:PT:SER:QN:CALCULATED 4.6 gm/dL 2.0-3.5 ALBUMIN/GLOBULIN:MRTO:PT:SER/PLAS:QN: 0.9 0.9-3.6 ALANINE AMINOTRANSFERASE:CCNC:PT:SER/PLAS:QN:WITH P-5'-P 15 unit/L 0-34 ASPARTATE AMINOTRANSFERASE:CCNC:PT:SER/PLAS:QN:WITH P-5'-P 8 unit/L 0-31 Rapid Influenza A/B Screen - 06/07/17 18:56 INFLUENZA VIRUS A Neg Neg U Preg Test Qual - 06/07/17 18:58 CHORIOGONADOTROPIN ( TEST):PRTHR:PT:URINE:ORD: Neg Neg .Blood Culture #1 AMS - 06/07/17 19:00 Blood Culture #1 Source AMS Lt AC NRG Blood Culture #1 Prelim AMS Source: Blood Collected: 06/07/17 19:00 NRG Blood Culture #1 Final AMS Source: Blood Collected: 06/07/17 19:00 NRG EBV Acute Infection Ab - 06/12/17 14:16 EBV Capsid IgG Ab Positive NRG EBV Capsid IgM Ab Negative NRG EBV Early Antigen IgG Negative NRG EBV Early IGG Index <5.0 unit/mL <9.0 EBV Capsid IGG Index 174.0 unit/mL <18.0 EBV Capsid IGM Index <10.0 unit/mL <36.0 EBV Nuclear Ag IgG Positive NRG EBV Nuclear IGG Index 243.0 unit/mL <18.0 Encounters ACCT No. Visit Date/Time Discharge Status Pt. Type Provider Facility Loc./Unit Complaint [id number] 02/27/2018 14:05:00 02/27/2018 23:59:00 [id number] 09/12/2017 10:32:00 09/12/2017 23:59:00 [facility]aw [id number] 06/12/2017 13:38:00 06/12/2017 23:59:59 [id number]07[facility]2017 18:28:00 06/07/2017 20:05:00 DIS Emergency Pepe-Vimal Montejo [facility] EMR [id number] 08/04/2015 15:02:00 08/05/2015 14:10:00 DIS Outpatient Kashif Simon MD [facility] [place] [facility] F5N Acute Appendicitis [id number] 11/04/2016 05:17:35 Document Registration [id number] 07/26/2016 05:16:12 Document Registration [id number] 04/16/2016 05:16:39 Document Registration [id number] 09/17/2014 09:26:00 Document Registration [id number] 03/05/2018 00:00:00 Document Registration [id number] 03/02/2018 00:00:00 Document Registration [id number] 02/27/2018 15:30:00 Document Registration [id number] 03/09/2017 00:00:00 Document Registration [id number] 03/01/2017 10:00:00 Document Registration [id number] 03/01/2017 00:00:00 Document Registration [id number] 03/01/2017 00:00:00 Document Registration [id number] 06/13/2016 09:45:00 Document Registration [id number] 06/10/2016 07:30:00 Document Registration [id number] 04/01/2016 09:33:25 Document Registration [id number] 04/01/2016 09:30:00 Document Registration [id number] 04/01/2016 00:00:00 Document Registration [id number] 11/03/2016 15:07:00 11/03/2016 23:59:00 DIS Outpatient Temo Anaya [facility] OBGYN WWE [id number] 07/25/2016 13:10:00 07/25/2016 23:59:00 DIS Outpatient Jillian Velasqeuz [facility] CP Peds COUGH, CONGESTION [id number] 04/15/2016 13:57:00 04/15/2016 23:59:00 DIS Outpatient Samy Nagy [facility] CP Peds 2nd dose men B [id number] 03/18/2016 12:47:00 03/18/2016 23:59:00 DIS Outpatient Samy Nagy [facility] CP Peds wce [id number] 01/06/2016 16:54:00 01/06/2016 23:59:00 DIS Outpatient Toni Domínguez [facility] Mur IC RIGHT FOOT SOCCER INJURY [id number] 08/24/2015 10:12:00 08/24/2015 23:59:00 DIS Outpatient Alfred Kashif Herbert [facility] FC Surg po 2 weeks [id number] 08/03/2015 11:23:00 08/03/2015 23:59:00 DIS Outpatient Samy Nagy [facility] CP Peds rt lower quadrant pain nasuea no appetite fatigue [id number] 04/23/2015 17:17:00 04/23/2015 23:59:00 DIS Outpatient [facility] Mur IC LFT EAR PAIN [id number] 03/30/2015 14:52:00 03/30/2015 23:59:00 DIS Outpatient Mark Hernandez [facility] E[address] npv [address] nagy pt, pt coming at 3pm [id number] 03/02/2015 16:03:00 03/02/2015 23:59:00 DIS Outpatient Samy Nagy [facility] CP Peds SPORTS PHYSICAL [id number] 01/12/2015 09:34:00 Document Registration [id number] 08/06/2014 08:35:00 Document Registration [id number] 08/04/2014 07:46:00 Document Registration [id number] 09/11/2013 15:17:00 09/11/2013 23:59:59 CLS Outpatient [id number] 06/27/2013 11:30:00 06/27/2013 23:59:59 CLS Outpatient
--- OUTSIDE RECORDS SUMMARY | 2018-09-25 22:42 | XMS REPORT | Continuity of Care Document ---
Author Author Carol Nagy MD Ambulatory Address [address] [place] [address] Phone Care Team Providers Care Suction Dredge Dumping Supervisor Name Role Phone Samy Nagy PP Unavailable Payers Payer name Insurance type Covered democrat ID Authorization(s) Unknown Problems Condition Effective Dates (start - stop) Clinical Status Viral Infection, Unspecified - *Acute Ankle sprain - *Acute Other acne - *Chronic Other and unspecified injury to elbow, forearm, and wrist - * Acute Generalized anxiety disorder - *Chronic Generalized anxiety disorder - Chronic Closed fracture of carpal bone, unspecified - Pressure-related ear pain - *Routine Dysmenorrhea in the adolescent - *Routine Irregular periods/menstrual cycles - *Routine Influenza Vaccine - NEED FOR PROPHYLACTIC VACCINATION AND INOCULATION, OTHER VIRAL DISEASES - Generalized anxiety disorder - *Chronic Contusion of great toe, right - *Acute Routine infant or child health check - Routine Generalized [...] Dosage Effective Dates (start - stop) Status Duac 1.2 %(1 % base)-5 % topical gel,extended release apply by topical route every day to the affected area at bedtime. 0 - Active ibuprofen 200 mg capsule take 1 capsule (200MG) by oral route every 6 hours as needed 200 MG - Active Zoloft 50 mg tablet take 1.5 Tablet (75MG) by oral route every day 75 MG - Active Immunizations Vaccine Date Status Comments HPV (quadrivalent) completed Flu (split) (3 yrs or older) completed HPV (quadrivalent) completed hep A (ped/adol, 2 dose) completed - Completed reason: source unspecified hep A (ped/adol, 2 dose) completed - Completed reason: source unspecified Hib (HbOC) completed - Completed reason: source unspecified Hib (HbOC) completed - Completed reason: source unspecified Hib (HbOC) completed - Completed reason: source unspecified HPV (quadrivalent) completed - Completed reason: source unspecified RotaTeq (Rotavirus 3 dose) completed - Completed reason: source unspecified RotaTeq (Rotavirus 3 dose) completed - Completed reason: source unspecified RotaTeq (Rotavirus 3 dose) completed - Completed reason: source unspecified Infanrix completed - Completed reason: source unspecified Infanrix completed - Completed reason: source unspecified Infanrix completed - Completed reason: source unspecified Infanrix completed - Completed reason: source unspecified Infanrix completed - Completed reason: source unspecified MMR completed - Completed reason: source unspecified MMR completed - Completed reason: source unspecified polio, inactivated (IPV) completed - Completed reason: source unspecified polio, inactivated (IPV) completed - Completed reason: source unspecified polio, inactivated (IPV) completed - Completed reason: source unspecified polio, inactivated (IPV) completed - Completed reason: source unspecified Tdap (Boostrix ) completed - Completed reason: source unspecified varicella completed - Completed reason: source unspecified varicella completed - Completed reason: source unspecified MCV4 completed - Completed reason: source unspecified hep B (ped/adol, 3 dose) completed - Completed reason: source unspecified hep B (ped/adol, 3 dose) completed - Completed reason: source unspecified hep B (ped/adol, 3 dose) completed - Completed reason: source unspecified Results Test Name Date and Time Measure Units Reference Range Abnormal Flag Comments Unknown Vital Signs Date / Time: Height Weight Pulse Rate Blood Pressure Temperature /15:18:00 65.50 in 123.00 lbs 56 /min 110/70 mm[Hg] /15:19:00 56 /min 90/68 mm[Hg] /15:20:00 71 /min 100/70 mm[Hg] Procedures Procedure Date Unknown Encounters Encounter Location Date Patient Visit [facility] CP Peds Patient Visit [facility] CP Peds Patient Visit [facility] Care Patient Visit [facility] CP Peds Patient Visit [facility] Ortho Patient Visit [facility] E21 OB Patient Visit [facility] CP Peds Patient Visit [facility] CP Peds Patient Visit [facility] CP Peds Patient Visit [facility] FC Ortho Patient Visit [facility] CP Peds Patient Visit [facility] CP Peds Patient Visit Conversion Patient Visit [facility] CP Peds Patient Visit [facility] CP Peds Advance Directives Directive Effective Date Unknown
--- OUTSIDE RECORDS SUMMARY | 2018-09-25 22:42 | XMS REPORT | Referral Summary ---
Author Author [facility] Organization [facility] Address Unknown Phone Unavailable Care Team Providers Care Strategy Specialist Name Role Phone Samy Nagy PCP Encounter VC Date(s): 08/03/15 - 08/03/15 [facility] [address], [place] [address] Discharge Diagnosis: Right lower quadrant pain Discharge Disposition: 01-Home or Self Care Attending Physician: Samy Nagy MD Admitting Physician: Samy Nagy MD Vital Signs Most recent to 1 oldest [Reference Range]: Blood Pressure 104/64 mmHg [90-138/45-84 mmHg] (08/03/15 11:35 AM) Problem List Condition Effective Dates Status Health Status Informant Generalized anxiety Active disorder (disorder)(Confirmed ) right wrist sprain < 07/11/14 Resolved DOI 05/15/13 REC(Confirmed) Allergies, Adverse Reactions, Alerts No Known Allergies Medications Camrese oral tablet See Instructions, TAKE ONE TABLET BY MOUTH DAILY, # 91 tabs, 8 Refill(s), eRx: [facility], TAKE ONE TABLET BY MOUTH DAILY Start Date: 04/27/15 Status: Ordered Results Hematology Most recent to 1 oldest [Reference Range]: WBC [4.5-13.0 6.6 10*3/uL 10*3/uL] (08/03/15 12:40 PM) RBC [4.10-5.10] 4.85 (08/03/15 12:40 PM) Hgb [11.5-15.5 13.9 gm/dL gm/dL] (08/03/15 12:40 PM) Hct [36.0-46.0 %] 42.4 % (08/03/15 12:40 PM) MCV [78.0-102.0 fL] 87.4 fL (08/03/15 12:40 PM) MCH [25.0-35.0 pg] 28.7 pg (08/03/15 12:40 PM) MCHC [31.0-37.0 32.8 gm/dL gm/dL] (08/03/15 12:40 PM) RDW [11.5-14.5 %] 13.4 % (08/03/15 12:40 PM) Platelet [150-400 259 10*3/uL 10*3/uL] (08/03/15 12:40 PM) MPV [8.8-14.8 fL] 10.8 fL (08/03/15:40 PM) Immature 0.0 % Granulocytes (08/03/1540 PM) [0.0-1.0 %] Neutrophils [51-75 52 % %] (08/03/15 12:40 PM) Lymphocytes [20-46 37 % %] (08/03/15 12:40 PM) Monocytes [4-11 %] 10 % (08/03/15 12:40 PM) Eosinophils [0-4 %] 1 % (08/03/15 12:40 PM) Basophils [0-2 %] 1 % (08/03/15 12:40 PM) Neutro Absolute 3.47 10*3 [1.80-8.00 10*3] (08/03/15 12:40 PM) Lymph Absolute 2.47 10*3 [1.20-5.20 10*3] (08/03/15 12:40 PM) Henderson Absolute 0.63 10*3 [0.00-0.80 10*3] (08/03/15 12:40 PM) Eos Absolute 0.04 10*3 [0.00-0.60 10*3] (08/03/15 12:40 PM) Baso Absolute 0.03 10*3 [0.00-0.20 10*3] (08/03/15 12:40 PM) Chemistry Most recent to 1 oldest [Reference Range]: Sodium Lvl [135-144 140 mEq/L mEq/L] (08/03/15 12:40 PM) Potassium Lvl 4.4 mEq/L [3.5-5.2 mEq/L] (08/03/15 12:40 PM) Chloride [99-111 106 mEq/L mEq/L] (08/03/15 12:40 PM) CO2 [22-31 mEq/L] 25 mEq/L (08/03/15 12:40 PM) AGAP [3-20] 9 (08/03/15 12:40 PM) BUN [8-21 mg/dL] 14 mg/dL (08/03/15 12:40 PM) Glucose Lvl [60-100 90 mg/dL mg/dL] (08/03/15 12:40 PM) Creatinine Lvl 0.90 mg/dL [0.57-1.11 mg/dL] (08/03/15 12:40 PM) Calcium Lvl 10.3 mg/dL [8.9-10.5 mg/dL] (08/03/15 12:40 PM) Albumin Lvl [3.5-5.0 4.4 gm/dL gm/dL] (08/03/15 12:40 PM) Total Protein 7.7 gm/dL [6.4-8.3 gm/dL] (08/03/15 12:40 PM) Globulin [1.8-4.0 3.3 gm/dL gm/dL] (08/03/15 12:40 PM) ALT [0-55 U/L] 11 U/L (08/03/15 12:40 PM) AST [15-45 U/L] 17 U/L (08/03/15 12:40 PM) Alk Phos [40-150 74 U/L U/L] (08/03/15 12:40 PM) Bili Total [0.2-1.2 0.7 mg/dL mg/dL] (08/03/15 12:40 PM) Urinalysis Most recent to 1 oldest [Reference Range]: UA Color Madina *ABN* (08/03/15 12:33 PM) UA Appear Sl Cloudy (08/03/15 12:33 PM) UA pH [5.0-8.0] 6.0 (08/03/15 12:33 PM) UA Leuk Est Negative [Negative] (08/03/15 12:33 PM) UA Nitrite Negative [Negative] (11/30/15 12:33 PM) UA Protein Pos 1+ [Negative] *ABN* (08/03/15 12:33 PM) UA Glucose Negative [Negative] (08/03/15 12:33 PM) UA Ketones Negative [Negative] (08/03/15 12:33 PM) UA Urobilinogen 0.2 mg/dL (08/03/15 12:33 PM) UA Bili [Negative] Positive *ABN* (08/03/15 12:33 PM) UA Blood [Negative] Negative (08/03/15 12:33 PM) UA Spec Grav >=1.030 [1.003-1.030] (08/03/15 12:33 PM) Type Clean Catch (08/03/15 12:33 PM) UA WBC [0-4] 0-2 (08/03/15 12:00 AM) UA RBC [0-4] 0-4 (08/03/15 12:00 AM) Epithelial Cells 2-5 (08/03/15 12:00 AM) UA Hyal Cast [0-3] 4-6 *ABN* (08/03/15 12:00 AM) Immunizations Vaccine Date Refusal Reason tetanus/diphth/pertuss [...] Procedures Procedure Date Related Diagnosis Body Site Collection of venous blood by venipuncture 08/03/15 Tympanoplasty 2002 Ear tubes/Eardrum repair 1999 Social History Social History Type Response Smoking Status Never smoker Assessment and Plan Extracted from: Title: Right lower quadrant Author: Samy Nagy MD Date: 08/03/15 abdominal pain Assessment/Plan 1.Right lower quadrant pain, Right lower quadrant pain I obtained a CBC which was unremarkableand a chemistry panelwhich was also unremarkable. UAshowed 1+ protein but was not convincing for infection at all. I obtained an ultrasound which showed a smallright ovarian cyst less than 2 cm in its greatest dimensionwhich definitely would notbe surgical in nature but could be the causeof her discomfort. She is completely unwilling to considerlimited appendicealCT with rectal contrast. After some discussion of options, we have elected to watch closely overnight at home and they're to call back if there is any deterioration. I would also like toget an update tomorrow and considerevaluation by a surgeon if we are worsening at all. Orders: Urine Culture
[2018-09-25] MEDS ORDERED: NORG1TAB75 (22:57)
[2018-09-25] MEDS ORDERED: AMOX-358 PO (23:42)
--- NOTE | 2018-09-25 23:42 | ED EENT ---
History of Present Illness General Chief Complaint: Oral/Throat Problems Stated Complaint: THROAT SWELLING Nursing Triage Note: pt presents to ed with complaints of sore throat and swelling starting 0300 this am. Source: patient History of Present Illness Date Seen by Provider: Sep 25, 2018 Time Seen by Provider: 23:00 Initial Comments PT ARRIVES VIA POV C/O SORE THROAT SINCE 0200 THIS MORNING STATES IT HURTS TO SWALLOW AND "FEELS LIKE HER THROAT IS SWELLING SHUT" PT IS ABLE TO SWALLOW LIQUIDS AND SALIVA NO NASAL CONGESTION NO FEVER NO COUGH HAS SLIGHT NAUSEA AND DIZZINESS NOT A FREQUENT PROBLEM NO KNOWN SICK CONTACTS, BUT PT IS [employer] STUD[employer] TOOK 4 IBUPROFEN AT 2030 AND 1 SUDAFED, OTHERWISE HAS NOT TAKEN ANYTHING ELSE FOR SYMPTOMS [employer] Allergies and Home Medications Allergies Coded Allergies: No Known Drug Allergies (Unverified , 09/25/18) Home Medications Amoxicillin/Potassium Clav 1 Each Tablet, 1 EACH PO BID Prescribed by: MARV FREED on 09/25/18 2444 Patient Home Medication List Home Medication List Reviewed: Yes Review of Systems Review of Systems Constitutional: see HPI; No chills; dizziness; No fever Eyes: No Symptoms Reported Ears: No Symptoms Reported Nose: no symptoms reported Mouth: no symptoms reported Throat: see HPI, pain; denies neck stiffness, denies hoarse, denies aphonia, denies muffled; painful swallowing Respiratory: no symptoms reported; No cough Cardiovascular: no symptoms reported Gastrointestinal: no symptoms reported : No LMP: Sep 10, 2018 (ON [facility] ) Musculoskeletal: no symptoms reported; No neck pain Skin: no symptoms reported; No rash Neurological: No Symptoms Reported; Denies Headache Hematologic/Lymphatic: No Symptoms Reported Immunological/Allergic: no symptoms reported Past Dbesrpa-Jvcijl-Lqwdar Hx Patient Social History Alcohol Use: Occasionally Uses Recreational Drug Use: No Smoking Status: Never a Smoker Recent Foreign Travel: No Contact w/Someone Who Travel: No Recent Infectious Disease Expo: No Recent Hopitalizations: No Physical Abuse: No Sexual Abuse: No Mistreated: No Fear: No Seasonal Allergies Seasonal Allergies: No Past Medical History Surgeries: Yes Appendectomy Respiratory: No Cardiac: No Neurological: No Genitourinary: No Gastrointestinal: No Musculoskeletal: No Endocrine: No HEENT: No Cancer: No Psychosocial: No Integumentary: No Blood Disorders: No Physical Exam Vital Signs Vital Signs - First Documented 09/25/18 22:47 Temp 98.0 Pulse 88 Resp 20 B/P (MAP) 139/107 (118) Pulse Ox 100 Height, Weight, BMI Height: 5'2.00" Weight: 135lbs. oz. 61.207966vy; BMI Method:Stated General Appearance: WD/WN, no apparent distress, other (DOES NOT APPEAR ILL OR TO BE IN ANY DISTRESS OR DISCOMFORT. VOICE IS NORMAL ) Eyes: bilateral eye normal inspection, bilateral eye PERRL, bilateral eye EOMI Ears: bilateral ear auricle normal, bilateral ear canal normal, bilateral ear TM normal Nose: normal inspection Mouth/Throat: No tongue swollen, No tonsillar exudate, No tonsillar swelling, No trismus, No uvula swelling, No voice changes; other (MILD PHARYNGEAL ERYTHEMA. TONSILS ATROPHIC. NO EXUDATE. UVULA AND POSTERIOR PHARYNX NORMAL NO EVIDENCE OF PERITONSILLAR ABSCESS. 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, no motor/sensory deficits, alert, normal mood/affect, oriented x 3 Progress/Results/Core Measures Results/Orders Lab Results Laboratory Tests Test 09/25/18 22:46 Range/Units Group A Streptococcus Screen NEGATIVE NEGATIVE My Orders Orders - MARV FREED DO Rapid Strep A Screen (09/25/18 23:06) Amoxicillin/Clavulanate Tablet (Augmenti (09/25/18 23:45) Vital Signs/I&O 09/25/18 09/25/18 22:47 23:55 Temp 98.0 98.0 Pulse 88 88 Resp 20 20 B/P (MAP) 139/107 (118) 139/107 (118) Pulse Ox 100 100 Blood Pressure Mean: 118 Departure Impression Primary Impression: Pharyngitis Disposition: 01 HOME, SELF-CARE Condition: Stable Departure-Patient Inst. Referrals: JARET HUTCHINS MD Patient Instructions: Sore Throat, Adult (DC) Add. Discharge Instructions: LOTS OF CLEAR LIQUIDS FREQUENT SALT WATER GARGLES TYLENOL 1 GRAM / MOTRIN 800 MG 4 TIMES A DAY NEEDED FOR PAIN OR FEVER FOLLOW UP WITH [facility] IN 3-4 DAYS IF NO BETTER All discharge instructions reviewed with patient and/or family. Voiced understanding. Scripts Amoxicillin/Potassium Clav (Augmentin 875-125 Tablet) 1 Each Tablet 1 EACH PO BID for INFECTION, #20 TAB Prov: MARV FREED DO 09/25/18 MARV FREED DO Sep 25, 2018 23:42
[2018-09-25] MEDS ORDERED: AUGMENTIN 875 MG TAB (AMOXICILLIN/CLAVULANATE) PO SCH (23:45)
[2018-09-25 23:55] VITALS: BP 139/107
== END 2018-09-25 23:58 | disposition home or self-care (01) ==
LOC: ER 22:36
DX: J02.9 Acute pharyngitis, unspecified (principal); Z90.49 Acquired absence of other specified parts of digestive tract
CPT/HCPCS: 87430; 99284